=== PATIENT | male | born 1930 ===

== ENCOUNTER 2017-01-24 13:17 | Emergency (ER) | payer MEDICAID, MEDICARE, OTHER ==
[2017-01-24 13:27] VITALS: BMI 20.9
[2017-01-24 13:36] VITALS: TEMP 98.4
[2017-01-24] MEDS ORDERED: TDAP Vaccine 0.5 mL Syr IM ONE (13:59)
--- NOTE | 2017-01-24 14:13 | ED PDOC ---
Arrival/HPI - General Time Seen by Provider: 01/24/17 13:51 Historian: Patient - History of Present Illness Narrative History of Present Illness (Text): 01/24/17 14:13 An 86 year old male presents to the emergency department s/p mechanical fall. Patient's son was chief concierge. Patient finished chemotherapy and was waiting for transport. Patient fell and hit left eyebrow and forehead. Denies any loss of consciousness, syncope, nausea, vomiting, dizziness, focal weakness or any other complaints at this time. PMD: Dr. Hernandez Time/Duration: Prior to Arrival Symptom Onset: Sudden Symptom Course: Unchanged Activities at Onset: Rest Associated Symptoms (Text): none 01/24/17 14:29 Patient had just finished chemotherapy and was waiting for his transportation when he had a mechanical fall injuring his head. Son translates. There was no loss of consciousness or vomiting. Son reports that the patient is acting normally. No chest pain or palpitations. No extremity trauma. He was ambulatory. Past Medical History - Provider Review Nursing Documentation Reviewed: Yes - Cardiac Hx Cardiac Disorders: Yes Hx Hypertension: Yes - Pulmonary Hx Respiratory Disorders: Yes Hx Asthma: Yes Hx Bronchitis: Yes Hx Chronic Obstructive Pulmonary Disease (COPD): Yes (ASTHMA) Hx Emphysema: Yes Hx Pneumonia: Yes (2 years ago ) Other/Comment: TRACHEOSTOMY - HEENT Hx HEENT Disorder: Yes (throat cancer) - Endocrine/Metabolic Hx Endocrine Disorders: Yes Hx Diabetes Mellitus Type 2: Yes - Hematological/Oncological Hx Blood Disorders: Yes Hx Cancer: Yes (CANCER LARYNX) Hx Chemotherapy: Yes (radiation 1 year ago) - Musculoskeletal/Rheumatological Hx Musculoskeletal Disorders: Yes Hx Arthritis: Yes Hx Gout: Yes - Gastrointestinal Hx Gastrointestinal Disorders: Yes Hx Gastroesophageal Reflux: Yes - Genitourinary/Gynecological Hx Genitourinary Disorders: Yes Hx Prostate Problems: Yes (BPH) - Surgical History Other/Comment: TRACHEOSTOMY. PEG TUBE hence removed - Anesthesia Hx Anesthesia: Yes Hx Anesthesia Reactions: No Hx Malignant Hyperthermia: No - Suicidal Assessment Feels Threatened In Home Enviroment: No Family/Social History - Physician Review Nursing Documentation Reviewed: Yes Family/Social History: No Known Family HX Smoking Status: Former Smoker Hx Alcohol Use: No Allergies/Home Meds Allergies/Adverse Reactions: Allergies No Known Allergies Allergy (Verified 01/24/15 14:03) Home Medications: Home Meds Medication Instructions Recorded Confirmed amLODIPine [Norvasc] 2.5 mg PO QAM 02/27/15 11/23/16 Albuterol 0.083% [Albuterol 0.083% 2.5 mg NEB DAILY 10/03/15 11/23/16 Inhal Tanisha (2.5 mg/3 ml) UD] Budesonide/Formoterol Fumarate 2 puff IH DAILY 10/03/15 11/23/16 [Symbicort 160-4.5 Mcg Inhaler] Dutasteride [Avodart] 0.5 mg PO DAILY 10/03/15 11/23/16 Gabapentin [Neurontin] 300 mg PO BID 10/03/15 11/23/16 Ipratropium [place] 0.2 mg IH DAILY 10/03/15 11/23/16 Primidone [Mysoline] 50 mg PO BID 10/03/15 11/23/16 Theophylline [Myles-Dur] 300 mg PO DAILY 10/03/15 11/23/16 Tiotropium [Spiriva] 18 mcg IH DAILY 10/03/15 11/23/16 Zinc [Zinc Sulfate 220 mg Cap] 220 mg PO DAILY 10/03/15 11/23/16 Review of Systems - Physician Review All systems were reviewed & negative as marked: Yes - Review of Systems Constitutional: Fatigue. absent: Fevers Respiratory: Normal. absent: SOB Cardiovascular: absent: Syncope Gastrointestinal: absent: Abdominal Pain, Nausea, Vomiting Neurological: absent: Headache, Dizziness, Focal Weakness, Gait Changes Physical Exam Vital Signs Reviewed: Yes Vital Signs Temp Pulse Resp BP Pulse Ox 01/24/17 13:18 98.4 F 77 20 102/72 91 L Temperature: Afebrile Blood Pressure: Normal Pulse: Regular Respiratory Rate: Normal Appearance: Positive for: Well-Appearing, Non-Toxic, Comfortable, Other ( Chronically ill-appearing with a tracheostomy) Pain Distress: None Mental Status: Positive for: Alert and Oriented X 3 - Systems Exam Head: Present: Normocephalic, Abrasion, Other (Left eyebrow and forehead abrasions) Pupils: Present: PERRL Extroacular Muscles: Present: EOMI Conjunctiva: Present: Normal Ears: Present: NORMAL TM, Normal Canal. No: Erythema Mouth: Present: Moist Mucous Membranes Neck: Present: Normal Range of Motion Respiratory/Chest: Present: Clear to Auscultation, Good Air Exchange. No: Respiratory Distress, Accessory Muscle Use Cardiovascular: Present: Regular Rate and Rhythm, Normal S1, S2. No: Murmurs Abdomen: Present: Normal Bowel Sounds. No: Tenderness, Distention, Peritoneal Signs Back: Present: Normal Inspection Upper Extremity: Present: Normal Inspection. No: Cyanosis, Edema Lower Extremity: Present: Normal Inspection. No: Edema Neurological: Present: GCS=15, CN II-XII Intact, Speech Normal, Motor Func Grossly Intact, Normal Cerebellar Funct Skin: Present: Warm, Dry, Normal Color. No: Rashes Psychiatric: Present: Alert, Oriented x 3, Normal Insight, Normal Concentration Medical Decision Making ED Course and Treatment: 01/24/17 14:10 Impression: An 86 year old male s/p mechanical fall. Patient hit forehead and left eyebrow, no loss of consciousness. Plan: -- CT head -- Boostrix -- Reassess and disposition Prior Visits: Notes and results from previous visits were reviewed. Patient last reported to the emergency department on 01/23/15 for evaluation of difficulty swallowing, shortness of breath and voice change. Progress Notes: 01/24/17 14:46 CT scan of the head as read by the radiologist shows no acute findings. Patient will be discharged home accompanied by family to follow-up with PMD. Follow up in ER as needed. - RAD Interpretation Radiology Orders: 01/24/17 13:58 HEAD W/O CONTRAST [CT] Stat - Medication Orders Current Medication Orders: Discontinued Medications Tetanus/Reduced Diphtheria/Acell Pertussis (Boostrix Vaccine Inj) 0.5 ml IM .ONCE ONE Stop: 01/24/17 14:00 Last Admin: 01/24/17 14:40 Dose: 0.5 ml - Scribe Statement The provider has reviewed the documentation as recorded by the Tamir Godoy Provider Scribe Attestation: All medical record entries made by the Elmeribbrian were at my direction and personally dictated by me. I have reviewed the chart and agree that the record accurately reflects my personal performance of the history, physical exam, medical decision making, and the department course for this patient. I have also personally directed, reviewed, and agree with the discharge instructions and disposition. Disposition/Present on Arrival - Present on Arrival Any Indicators Present on Arrival: No History of DVT/PE: No History of Uncontrolled Diabetes: Yes Urinary Catheter: No History of Decub. Ulcer: No History Surgical Site Infection Following: None - Disposition Have Diagnosis and Disposition been Completed?: Yes Diagnosis: Head contusion, Abrasion head Disposition: HOME/ ROUTINE Disposition Time: 14:46 Patient Plan: Discharge Condition: FAIR Discharge Instructions (ExitCare): Head Injury (ED), Abrasion (ED), Contusion in Adults (ED) Additional Instructions: Rest and ice. Follow-up with PMD. Follow-up in ER as needed. Tylenol as directed on bottle as needed.
--- NOTE | 2017-01-24 14:42 | CT ---
PROCEDURE: CT HEAD WITHOUT CONTRAST. HISTORY: trauma COMPARISON: None available. TECHNIQUE: Axial computed tomography images were obtained through the head/brain without intravenous contrast. Radiation dose: Total exam DLP = 689 mGy-cm. This CT exam was performed using one or more of the following dose reduction techniques: Automated exposure control, adjustment of the mA and/or kV according to patient size, and/or use of iterative reconstruction technique. FINDINGS: HEMORRHAGE: No intracranial hemorrhage. BRAIN: No mass effect or edema. No atrophy or chronic microvascular ischemic changes. VENTRICLES: Unremarkable. No hydrocephalus. CALVARIUM: Unremarkable. PARANASAL SINUSES: There is opacification of the left frontal sinus MASTOID AIR CELLS: Unremarkable as visualized. No inflammatory changes. OTHER FINDINGS: None. IMPRESSION: No acute findings
[2017-01-24 14:56] VITALS: BP 111/73; PULSE 78; RESP 18; O2SAT 97
== END 2017-01-24 14:56 | disposition home or self-care (01) ==
LOC: ED 13:17
DX: S00.83XA Contusion of other part of head, initial encounter (principal); W19.XXXA Unspecified fall, initial encounter; Y93.89 Activity, other specified; Y92.531 Health care provider office as the place of occurrence of the external cause; Z23 Encounter for immunization